=== PATIENT | female | born 1975 | race American Indian/Alaskan Native ===

== ENCOUNTER 2017-08-20 12:01 | Inpatient (IN) | payer MEDICAID ==
[2017-08-20 12:01] VITALS: BMI 29.5
[2017-08-20 12:58] LABS: BASO % 0.6 % (0.0-2.0); EOS # 0.2 K/uL (0.0-0.7); EOS % 3.1 % (0.0-4.0); HEMOGLOBIN 12.2 g/dL (11.0-16.0); LYMPH # 2.1 K/uL (1.0-4.3); LYMPH % 38.4 % (20.0-40.0); MEAN CELL VOLUME 80.8 fL (81.0-99.0); MEAN CORPUSCULAR HEMOGLOBIN 26.7 pg (27.0-31.0); MEAN CORPUSCULAR HGB CONC 33.1 g/dL (33.0-37.0); MEAN PLATELET VOLUME 9.2 fL (7.2-11.7); MONO # 0.5 K/uL (0.0-0.8); MONO % 8.9 % (0.0-10.0); NEUT # 2.6 K/uL (1.8-7.0); NRBC % 0.1 % (0.0-2.0); RBC 4.55 Mil/uL (3.80-5.20); RED CELL DISTRIBUTION WIDTH 13.6 % (11.5-14.5); WHITE BLOOD COUNT 5.4 K/uL (4.8-10.8)
[2017-08-20 13:02] LABS: HCG,QUALITATIVE URINE NEGATIVE (NEGATIVE)
[2017-08-20 13:03] LABS: SQUAMOUS EPITHIAL 1 /hpf (0-5); URINE BILIRUBIN NEGATIVE (NEGATIVE); URINE BLOOD NEGATIVE (NEGATIVE); URINE CLARITY Clear (Clear); URINE COLOR Yellow (YELLOW); URINE GLUCOSE (UA) NORMAL (Normal); URINE LEUKOCYTE ESTERASE NEG Leu/uL (Negative); URINE PROTEIN NEGATIVE (NEGATIVE); URINE UROBILINOGEN NORMAL mg/dL (0.2-1.0)
[2017-08-20 13:05] LABS: PROTHROMBIN TIME 11.4 SECONDS (9.7-12.2)
[2017-08-20 13:13] LABS: ALB/GLOB RATIO 1.1 (1.0-2.1); ALBUMIN 3.8 g/dL (3.5-5.0); ALT/SGPT 14 U/L (9-52); AST/SGOT 23 U/L (14-36); BLOOD UREA NITROGEN 11 mg/dL (7-17); GFR AFRICAN-AMERICAN > 60; GFR NON-AFRICAN AMERICAN > 60
[2017-08-20 13:24] LABS: B-TYPE NATRIURETIC PEPTIDE 23.4 pg/mL (0-450); CK-MB 1.27 ng/mL (0.0-3.38)
--- NOTE | 2017-08-20 13:29 | RAD ---
Chest x-ray single frontal view History: Chest pain. Comparison: None available. Findings: Mild venous congestion. No focal infiltrate or effusion. Heart size within normal limits. Impression: No focal infiltrate or effusion.
--- NOTE | 2017-08-20 15:03 | C.PDOC ---
Time Seen by Provider: 08/20/17 12:45 Chief Complaint (Nursing): Chest Pain Past Medical History Vital Signs: Last Vital Signs Temp 98.3 F 08/20/17 12:11 Pulse 82 08/20/17 12:11 Resp 18 08/20/17 12:11 BP 135/78 08/20/17 12:11 Pulse Ox 98 08/20/17 15:07 - Medical History PMH: Anemia, Gall Bladder Disease (gallstones), HTN, Hypercholesterolemia, Peripheral Edema Denies: Chronic Kidney Disease Surgical History: Cholecystectomy - [facility] Procedures LAPAROSCOPIC CHOLECYSTECTOMY (11/25/14) OTHER OPEN UMBILICAL HERNIORRHAPHY (11/25/14) - Social History Hx Alcohol Use: No Hx Substance Use: No ED Course And Treatment - Laboratory Results Result Diagrams: 08/20/17 12:47 08/20/17 12:47 O2 Sat by Pulse Oximetry: 98 Disposition - Disposition Disposition: HOSPITALIZED Disposition Time: 15:16 Condition: FAIR Forms: [facility] [employer] ([place]) - Clinical Impression Clinical Impression: Chest pain, Dyspnea
[2017-08-20] MEDS ORDERED: Albuterol 0.083% Inhal Sol (2.5 mg/3 mL) UD INH STA (15:07)
[2017-08-20] MEDS ORDERED: Albuterol 0.083% Inhal Sol (2.5 mg/3 mL) UD ONE (15:10)
--- NOTE | 2017-08-20 15:30 | C.PDOC ---
History Of Present Illness 42-year-old female, presents to the emergency department with complaints intermittent chest pain and shortness of breath for the past 2 days. Denies nausea/vomiting, fever, chills, or any other associated symptoms. No other complaints at this time. Time Seen by Provider: 08/20/17 12:45 Chief Complaint (Nursing): Chest Pain History Per: Patient History/Exam Limitations: no limitations Current Symptoms Are (Timing): Still Present Past Medical History Reviewed: Historical Data, Nursing Documentation, Vital Signs Vital Signs: Last Vital Signs Temp 98 F 08/20/17 16:02 Pulse 67 08/20/17 16:02 Resp 20 08/20/17 16:02 BP 158/84 H 08/20/17 16:02 Pulse Ox 98 08/20/17 18:18 - Medical History PMH: Anemia, Gall Bladder Disease (gallstones), HTN, Hypercholesterolemia, Peripheral Edema Surgical History: Cholecystectomy - [facility] Procedures LAPAROSCOPIC CHOLECYSTECTOMY (11/25/14) OTHER OPEN UMBILICAL HERNIORRHAPHY (11/25/14) Family History: States: No Known Family Hx - Social History Hx Alcohol Use: No Hx Substance Use: No Review Of Systems Except As Marked, All Systems Reviewed And Found Negative. Constitutional: Negative for: Fever, Chills Cardiovascular: Positive for: Chest Pain Respiratory: Positive for: Shortness of Breath Gastrointestinal: Negative for: Nausea, Vomiting Musculoskeletal: Negative for: Back Pain Skin: Negative for: Rash Neurological: Negative for: Weakness, Numbness, Headache, Dizziness Physical Exam - Physical Exam Appears: Non-toxic, No Acute Distress Skin: Normal Color, Warm, Dry, No Rash Head: Normacephalic Eye(s): bilateral: PERRL Nose: Normal Oral Mucosa: Moist Lips: Normal Appearing Neck: Normal ROM Chest: Symmetrical Cardiovascular: Rhythm Regular, No Murmur Respiratory: Normal Breath Sounds, No Accessory Muscle Use, No Rales, No Rhonchi , No Wheezing Gastrointestinal/Abdominal: Soft, No Tenderness Extremity: Normal ROM, Pedal Edema (Pitting, B/L), No Deformity, No Swelling Neurological/Psych: Oriented x3, Normal Speech ED Course And Treatment - Laboratory Results Result Diagrams: 08/20/17 12:47 08/20/17 12:47 ECG: Interpreted By Me, Viewed By Me ECG Interpretation: No Acute Changes Interpretation Of ECG: LVH Rate From EC O2 Sat by Pulse Oximetry: 98 (RA) Pulse Ox Interpretation: Normal - Other Rad CXR X-Ray: Viewed By Me, Read By Radiologist Interpretation: Chest x-ray single frontal view. History: Chest pain. Comparison: None available. Findings: Mild venous congestion. No focal infiltrate or effusion. Heart size within normal limits. Impression: No focal infiltrate or effusion. Progress Note: Bloodwork, Chest XR, EKG, and UA ordered and reviewed. Pt treated with Aspirin and Albuterol. Case was accepted by Medicine cardiology clinical consultant to telemetry for observation. Disposition - Disposition Disposition: HOSPITALIZED Disposition Time: 15:15 Condition: FAIR - Clinical Impression Clinical Impression: Chest pain, Dyspnea - Scribe Statement The provider has reviewed the documentation as recorded by the Scribe (Jaun Santos) All medical record entries made by the Scribe were at my direction and personally dictated by me. I have reviewed the chart and agree that the record accurately reflects my personal performance of the history, physical exam, medical decision making, and the department course for this patient. I have also personally directed, reviewed, and agree with the discharge instructions and disposition. Decision To Admit - Pt Status Changed To: Hospital Disposition Of: Observation - . Bed Request Type: Telemetry Admitting Physician: Sofya Caicedo Patient Diagnosis: Chest pain, Dyspnea
--- NOTE | 2017-08-20 15:54 | CP.PCM.HP ---
History of Present Illness - History of Present Illness History of Present Illness: PGY-[address] H&P [address] Leung's service: CC: SOB/Chest pain HPI: Patient is a 42 year old female, with PMHx of Anemia, Gall Bladder Disease ( gallstones), HTN, Hypercholesterolemia, Peripheral Edema, presenting for chest pain, SOB. Present on Admission - Present on Admission Any Indicators Present on Admission: No Past Patient History - Past Medical History & Family History Past Medical History?: Yes - Past Social History Smoking Status: Never Smoked - CARDIAC Hx Hypercholesterolemia: Yes Hx Hypertension: Yes Hx Peripheral Edema: Yes - PULMONARY Hx Respiratory Disorders: No - NEUROLOGICAL Hx Neurological Disorder: No - HEENT Hx HEENT Problems: No - RENAL Hx Chronic Kidney Disease: No - ENDOCRINE/METABOLIC Hx Endocrine Disorders: No - HEMATOLOGICAL/ONCOLOGICAL Hx Anemia: Yes - INTEGUMENTARY Hx Dermatological Problems: No - MUSCULOSKELETAL/RHEUMATOLOGICAL Hx Musculoskeletal Disorders: Yes Hx Herniated Disk: Yes (lumbar) - GASTROINTESTINAL Hx Gall Bladder Disease: Yes (gallstones) - GENITOURINARY/GYNECOLOGICAL Hx Genitourinary Disorders: Yes (CERVICAL DYSPLASIA) - PSYCHIATRIC Hx Substance Use: No - SURGICAL HISTORY Hx Cholecystectomy: Yes - ANESTHESIA Hx Anesthesia: Yes Hx Anesthesia Reactions: No Hx Malignant Hyperthermia: No Meds Allergies/Adverse Reactions: Allergies Allergy/AdvReac Type Severity Reaction Status Date / Time No Known Allergies Allergy Verified 11/21/14 12:55 Results - Vital Signs Recent Vital Signs: Last Vital Signs Temp 98.3 F 08/20/17 12:11 Pulse 66 08/20/17 15:34 Resp 13 08/20/17 15:34 BP 143/77 08/20/17 15:34 Pulse Ox 98 08/20/17 15:37 - Labs Result Diagrams: 08/20/17 12:47 08/20/17 12:47 Labs: Laboratory Results - last 24 hr 08/20/17 08/20/17 08/20/17 12:47 12:47 12:47 WBC 5.4 RBC 4.55 Hgb 12.2 Hct 36.7 MCV 80.8 L MCH 26.7 L MCHC 33.1 RDW 13.6 Plt Count 188 MPV 9.2 Neut % (Auto) 49.0 L Lymph % (Auto) 38.4 Crawford % (Auto) 8.9 Eos % (Auto) 3.1 Baso % (Auto) 0.6 Neut # (Auto) 2.6 Lymph # (Auto) 2.1 Crawford # (Auto) 0.5 Eos # (Auto) 0.2 Baso # (Auto) 0.0 PT 11.4 INR 1.0 APTT 33 Sodium Potassium Chloride Carbon Dioxide Anion Gap BUN Creatinine Est GFR ( Amer) Est GFR (Non-Af Amer) Random Glucose Calcium Total Bilirubin AST ALT Alkaline Phosphatase Total Creatine Kinase CK-MB (Mass) Troponin I NT-Pro-B Natriuret Pep Total Protein Albumin Globulin Albumin/Globulin Ratio Urine Color Yellow Urine Clarity Clear Urine pH 9.0 Ur Specific Gower 1.018 Urine Protein Negative Urine Glucose (UA) Normal Urine Ketones Negative Urine Blood Negative Urine Nitrate Negative Urine Bilirubin Negative Urine Urobilinogen Normal Ur Leukocyte Esterase Neg Urine WBC (Auto) 1 Urine RBC (Auto) 5 H Ur Squamous Epith Cells 1 Urine HCG, Qual Negative 08/20/17 12:47 WBC RBC Hgb Hct MCV MCH MCHC RDW Plt Count MPV Neut % (Auto) Lymph % (Auto) Crawford % (Auto) Eos % (Auto) Baso % (Auto) Neut # (Auto) Lymph # (Auto) Crawford # (Auto) Eos # (Auto) Baso # (Auto) PT INR APTT Sodium 143 Potassium 4.0 Chloride 102 Carbon Dioxide 30 Anion Gap 15 BUN 11 Creatinine 0.6 L Est GFR ( Amer) > 60 Est GFR (Non-Af Amer) > 60 Random Glucose 93 Calcium 9.0 Total Bilirubin 0.4 AST 23 ALT 14 Alkaline Phosphatase 60 Total Creatine Kinase 83 CK-MB (Mass) 1.27 Troponin I < 0.0120 NT-Pro-B Natriuret Pep 23.4 Total Protein 7.5 Albumin 3.8 Globulin 3.6 Albumin/Globulin Ratio 1.1 Urine Color Urine Clarity Urine pH Ur Specific Gower Urine Protein Urine Glucose (UA) Urine Ketones Urine Blood Urine Nitrate Urine Bilirubin Urine Urobilinogen Ur Leukocyte Esterase Urine WBC (Auto) Urine RBC (Auto) Ur Squamous Epith Cells Urine HCG, Qual Assessment & Plan - Assessment and Plan (Free Text) Plan: Chest pain - r/o ACS Admit to EKG (08/20/17): NSR @ 68, LVH, No acute ST/ T wave changes CXR (08/20/17): No infiltrate or effusion. BNP: 23.4 Troponin negative x 1, f/u 2 additional ASA 325mg given in ED Hx Anemia HTN Hypercholesterolemia
[2017-08-20] MEDS ORDERED: Albuterol HFA 90 mcg/actuation (8 g) INH PRN (20:00)
[2017-08-21 00:56] VITALS: RESP 20
[2017-08-21 07:54] LABS: MEAN CELL VOLUME 80.8 fL (81.0-99.0); MEAN CORPUSCULAR HEMOGLOBIN 26.9 pg (27.0-31.0); MEAN CORPUSCULAR HGB CONC 33.3 g/dL (33.0-37.0); MEAN PLATELET VOLUME 9.3 fL (7.2-11.7); RBC 4.48 Mil/uL (3.80-5.20); RED CELL DISTRIBUTION WIDTH 13.9 % (11.5-14.5); WHITE BLOOD COUNT 4.2 K/uL (4.8-10.8)
[2017-08-21 08:16] LABS: BLOOD UREA NITROGEN 11 mg/dL (7-17); GFR AFRICAN-AMERICAN > 60; GFR NON-AFRICAN AMERICAN > 60
[2017-08-21] MEDS: Pantoprazole 40 mg EC Tab PO SCH (09:11)
[2017-08-21] MEDS ORDERED: Enoxaparin 40 mg Syringe SC SCH (10:00)
--- NOTE | 2017-08-21 15:28 | CP.PCM.CON ---
History of Present Illness - History of Present Illness History of Present Illness: Consultation for evaluation of Cp/SOB: 42-year-old female presenting with complaints of chest pain and shortness of breath ongoing for 2 days prior to presentation. Chest x-ray was in the ER showed mild venous congestion initial troponin was negative patient was admitted to observation for further evaluation and treatment. She was resumed on aspirin hydrochlorothiazide Claritin along with albuterol and Protonix. Vitals on initial presentation was 120/78 with a pulse of 58 patient's blood pressure in the hospital has been mildly elevated. Review of Systems - Review of Systems Systems not reviewed;Unavailable: Acuity of Condition - Constitutional Constitutional: As Per HPI - EENT Eyes: As Per HPI Ears: As Per HPI Nose/Mouth/Throat: As Per HPI - Breasts Breasts: As Per HPI - Cardiovascular Cardiovascular: As Per HPI - Respiratory Respiratory: As Per HPI - Gastrointestinal Gastrointestinal: As Per HPI - Genitourinary Genitourinary: As Per HPI - Reproductive: Female Reproductive:Female: As Per HPI - Menstruation Menstruation: As Per HPI - Musculoskeletal Musculoskeletal: As Per HPI - Integumentary Integumentary: As Per HPI - Neurological Neurological: As Per HPI - Psychiatric Psychiatric: As Per HPI - Endocrine Endocrine: As Per HPI - Hematologic/Lymphatic Hematologic: As Per HPI Past Patient History - Past Medical History & Family History Past Medical History?: Yes - Past Social History Smoking Status: Never Smoked - CARDIAC Hx Hypercholesterolemia: Yes Hx Hypertension: Yes Hx Peripheral Edema: Yes - PULMONARY Hx Respiratory Disorders: No - NEUROLOGICAL Hx Neurological Disorder: No - HEENT Hx HEENT Problems: No - RENAL Hx Chronic Kidney Disease: No - ENDOCRINE/METABOLIC Hx Endocrine Disorders: No - HEMATOLOGICAL/ONCOLOGICAL Hx Anemia: Yes - INTEGUMENTARY Hx Dermatological Problems: No - MUSCULOSKELETAL/RHEUMATOLOGICAL Hx Musculoskeletal Disorders: Yes Hx Herniated Disk: Yes (lumbar) - GASTROINTESTINAL Hx Gall Bladder Disease: Yes (gallstones) - GENITOURINARY/GYNECOLOGICAL Hx Genitourinary Disorders: Yes (CERVICAL DYSPLASIA) - PSYCHIATRIC Hx Substance Use: No - SURGICAL HISTORY Hx Cholecystectomy: Yes - ANESTHESIA Hx Anesthesia: Yes Hx Anesthesia Reactions: No Hx Malignant Hyperthermia: No Meds Allergies/Adverse Reactions: Allergies Allergy/AdvReac Type Severity Reaction Status Date / Time No Known Allergies Allergy Verified 11/21/14 12:55 - Medications Medications: Current Medications Albuterol (Ventolin Hfa 90 Mcg/Actuation (8 G)) 1 puff INH RQ4 PRN PRN Reason: Shortness of Breath Aspirin (Aspirin) 325 mg PO DAILY [facility] Last Admin: 08/21/17 09:08 Dose: 325 mg Hydrochlorothiazide (Hydrodiuril) 25 mg PO DAILY [facility] Last Admin: 08/21/17 09:08 Dose: 25 mg Loratadine (Claritin) 10 mg PO DAILY [facility] Last Admin: 08/21/17 09:08 Dose: 10 mg Pantoprazole Sodium (Protonix Ec Tab) 40 mg PO DAILY [facility] Last Admin: 08/21/17 09:11 Dose: 40 mg Physical Exam - Constitutional Appears: Well - Head Exam Head Exam: ATRAUMATIC, NORMAL INSPECTION, NORMOCEPHALIC - Eye Exam Eye Exam: EOMI, Normal appearance, PERRL Pupil Exam: NORMAL ACCOMODATION, PERRL - ENT Exam ENT Exam: Mucous Membranes Moist, Normal Exam - Neck Exam Neck exam: Positive for: Normal Inspection - Respiratory Exam Respiratory Exam: Clear to Auscultation Bilateral, NORMAL BREATHING PATTERN - Cardiovascular Exam Cardiovascular Exam: REGULAR RHYTHM, Systolic Murmur - GI/Abdominal Exam GI & Abdominal Exam: Normal Bowel Sounds, Soft. absent: Tenderness - Extremities Exam Extremities exam: Positive for: normal inspection - Back Exam Back exam: NORMAL INSPECTION - Neurological Exam Neurological exam: Alert, CN II-XII Intact, Normal Gait, Oriented x3, Reflexes Normal - Psychiatric Exam Psychiatric exam: Normal Affect, Normal Mood - Skin Skin Exam: Dry, Intact, Normal Color, Warm Results - Vital Signs Recent Vital Signs: Last Vital Signs Temp 98.2 F 08/21/17 07:15 Pulse 70 08/21/17 07:40 Resp 20 08/21/17 07:15 BP 126/82 08/21/17 07:15 Pulse Ox 100 08/21/17 07:15 - Labs Result Diagrams: 08/21/17 07:43 08/21/17 07:43 Labs: Laboratory Results - last 24 hr 08/21/17 08/21/17 07:43 07:43 WBC 4.2 L RBC 4.48 Hgb 12.0 Hct 36.2 MCV 80.8 L MCH 26.9 L MCHC 33.3 RDW 13.9 Plt Count 173 MPV 9.3 Sodium 142 Potassium 4.0 Chloride 103 Carbon Dioxide 27 Anion Gap 15 BUN 11 Creatinine 0.6 L Est GFR ( Amer) > 60 Est GFR (Non-Af Amer) > 60 Random Glucose 85 Calcium 9.0 TSH 3rd Generation 1.05 Assessment & Plan (1) Chest pain Assessment and Plan: telemetry asa echo Serial TnI x 3 BNP Status: Acute (2) Dyspnea Assessment and Plan: echo Status: Acute
--- NOTE | 2017-08-21 16:24 | CP.PCM.CON ---
History of Present Illness - History of Present Illness History of Present Illness: Reason for consultation: shortness of breath 2-year-old female, presents to the emergency department with complaints intermittent chest pain and shortness of breath for the past 2 days. Denies nausea/vomiting, fever, chills, or any other associated symptoms. No other complaints at this time. Chest x-ray consistent with mild congestio. Denies cough, denies fever chills, denies wheezing. Patient has no history of smoking or any allergies. Review of Systems - Review of Systems All systems: reviewed and no additional remarkable complaints except (shortness of breath and chest pain) Past Patient History - Past Medical History & Family History Past Medical History?: Yes - Past Social History Smoking Status: Never Smoked - CARDIAC Hx Hypercholesterolemia: Yes Hx Hypertension: Yes Hx Peripheral Edema: Yes - PULMONARY Hx Respiratory Disorders: No - NEUROLOGICAL Hx Neurological Disorder: No - HEENT Hx HEENT Problems: No - RENAL Hx Chronic Kidney Disease: No - ENDOCRINE/METABOLIC Hx Endocrine Disorders: No - HEMATOLOGICAL/ONCOLOGICAL Hx Anemia: Yes - INTEGUMENTARY Hx Dermatological Problems: No - MUSCULOSKELETAL/RHEUMATOLOGICAL Hx Musculoskeletal Disorders: Yes Hx Herniated Disk: Yes (lumbar) - GASTROINTESTINAL Hx Gall Bladder Disease: Yes (gallstones) - GENITOURINARY/GYNECOLOGICAL Hx Genitourinary Disorders: Yes (CERVICAL DYSPLASIA) - PSYCHIATRIC Hx Substance Use: No - SURGICAL HISTORY Hx Cholecystectomy: Yes - ANESTHESIA Hx Anesthesia: Yes Hx Anesthesia Reactions: No Hx Malignant Hyperthermia: No Meds Allergies/Adverse Reactions: Allergies Allergy/AdvReac Type Severity Reaction Status Date / Time No Known Allergies Allergy Verified 11/21/14 12:55 - Medications Medications: Current Medications Albuterol (Ventolin Hfa 90 Mcg/Actuation (8 G)) 1 puff INH RQ4 PRN PRN Reason: Shortness of Breath Aspirin (Aspirin) 325 mg PO DAILY [facility] Last Admin: 08/21/17 09:08 Dose: 325 mg Hydrochlorothiazide (Hydrodiuril) 25 mg PO DAILY [facility] Last Admin: 08/21/17 09:08 Dose: 25 mg Loratadine (Claritin) 10 mg PO DAILY [facility] Last Admin: 08/21/17 09:08 Dose: 10 mg Pantoprazole Sodium (Protonix Ec Tab) 40 mg PO DAILY [facility] Last Admin: 08/21/17 09:11 Dose: 40 mg Physical Exam - Head Exam Head Exam: ATRAUMATIC, NORMOCEPHALIC - ENT Exam ENT Exam: Mucous Membranes Moist - Neck Exam Neck exam: Positive for: Normal Inspection - Respiratory Exam Respiratory Exam: Clear to Auscultation Bilateral - Cardiovascular Exam Cardiovascular Exam: REGULAR RHYTHM Results - Vital Signs Recent Vital Signs: Last Vital Signs Temp 98.0 F 08/21/17 15:00 Pulse 72 08/21/17 15:00 Resp 20 08/21/17 15:00 BP 127/79 08/21/17 15:00 Pulse Ox 98 08/21/17 15:00 - Labs Result Diagrams: 08/21/17 07:43 08/21/17 07:43 Labs: Laboratory Results - last 24 hr 08/21/17 08/21/17 07:43 07:43 WBC 4.2 L RBC 4.48 Hgb 12.0 Hct 36.2 MCV 80.8 L MCH 26.9 L MCHC 33.3 RDW 13.9 Plt Count 173 MPV 9.3 Sodium 142 Potassium 4.0 Chloride 103 Carbon Dioxide 27 Anion Gap 15 BUN 11 Creatinine 0.6 L Est GFR ( Amer) > 60 Est GFR (Non-Af Amer) > 60 Random Glucose 85 Calcium 9.0 TSH 3rd Generation 1.05 Assessment & Plan (1) Dyspnea Status: Acute Comment: congestive changes and chest x-ray. Echocardiogram. Seen by cardiology. Started on nebulizer treatment (2) Chest pain Status: Acute
[2017-08-21 19:43] LABS: HDL CHOLESTEROL 47 mg/dL (30-70)
[2017-08-21 19:54] LABS: CK-MB 0.69 ng/mL (0.0-3.38)
[2017-08-21 19:56] LABS: LDL CHOLESTEROL 116 mg/dL (0-129)
[2017-08-21 20:52] LABS: FOLATE 12.6 ng/mL
[2017-08-22 07:59] LABS: IRON 71 ug/dL (37-170)
[2017-08-22 08:09] LABS: % IRON SATURATION 18 (20-55); TOTAL IRON BINDING CAPACITY 387 ug/dL (250-450)
--- NOTE | 2017-08-22 08:52 | CP.PCM.PN ---
<Abhi Chamberlain - Last Filed: 08/22/17 09:16> Subjective - Date & Time of Evaluation Date of Evaluation: 08/22/17 Time of Evaluation: 09:11 - Subjective Subjective: Abhi Chamberlain PGY1 Cardiology Progress Note for Dr. Miranda Patient was seen and examined at bedside. Patient had cholecystectomy in 2015 and states that she has had midsternal/back pain since then, that is sharp and nagging at times, but dull for a few hours a day. she states that it is exacerbated when bending down and radiates to her feet at times. she also states that she has seasonal allergies that worsen her breathing as well as PMH of HTN, HLD, anemia 2/2 menorrhagia; she states that she follows up at a clinic but is non-compliant with her medications. She also states that she has family hx of breast and stomach cancer as well as a brother who at 42yo due to diabetes/stress, according to her. she is from [facility] and has migrated from there since 2005 and has not traveled recently. she has 6 children in total. she states that she feels "knives stabbing her chest" for 30mins and then dull pain for a few hours a day (which she states she is experiencing at the time of exam. she denies worsening with exertion, radiation to neck/arms and relief w/ rest. Objective - Vital Signs/Intake and Output Vital Signs (last 24 hours): Temp Pulse Resp BP Pulse Ox 98.1 F 64 20 123/81 99 08/22/17 07:50 08/22/17 07:50 08/22/17 07:50 08/22/17 07:50 08/22/17 07:50 - Medications Medications: Current Medications Albuterol (Ventolin Hfa 90 Mcg/Actuation (8 G)) 1 puff INH RQ4 PRN PRN Reason: Shortness of Breath Aspirin (Aspirin) 325 mg PO DAILY [facility] Last Admin: 08/21/17 09:08 Dose: 325 mg Hydrochlorothiazide (Hydrodiuril) 25 mg PO DAILY [facility] Last Admin: 08/21/17 09:08 Dose: 25 mg Loratadine (Claritin) 10 mg PO DAILY [facility] Last Admin: 08/21/17 09:08 Dose: 10 mg Pantoprazole Sodium (Protonix Ec Tab) 40 mg PO DAILY [facility] Last Admin: 08/21/17 09:11 Dose: 40 mg - Labs Labs: 08/21/17 07:43 08/21/17 07:43 PT 11.4 SECONDS (9.7-12.2) 08/20/17 12:47 INR 1.0 08/20/17 12:47 APTT 33 SECONDS (21-34) 08/20/17 12:47 - Constitutional Appears: Well, Non-toxic, No Acute Distress - Head Exam Head Exam: NORMAL INSPECTION - Eye Exam Eye Exam: Normal appearance Pupil Exam: NORMAL ACCOMODATION - ENT Exam ENT Exam: Mucous Membranes Moist, Normal Exam - Neck Exam Neck Exam: Normal Inspection - Respiratory Exam Respiratory Exam: Clear to Ausculation Bilateral, NORMAL BREATHING PATTERN. absent: Rales, Rhonchi, Wheezes - Cardiovascular Exam Cardiovascular Exam: RRR, +S1, +S2. absent: Murmur - GI/Abdominal Exam GI & Abdominal Exam: Soft, Tenderness (epigastric tenderness ), Normal Bowel Sounds. absent: Distended - Extremities Exam Extremities Exam: Full ROM, Pedal Edema (1+ b/l; wearing pressure stocking) - Back Exam Back Exam: NORMAL INSPECTION. absent: tenderness - Neurological Exam Neurological Exam: Alert, Awake, Oriented x3 - Psychiatric Exam Psychiatric exam: Normal Affect - Skin Skin Exam: Warm Assessment and Plan - Assessment and Plan (Free Text) Assessment: 42yo AAF with a PMH of HTN, HLD, anemia w/ blood transfusions, s/p cholecystectomy who presents with atypical chest pain symptoms ongoing for 2 years worsened the last 2 days. Plan: 1. Atypical chest pain - patient admitted to telemetry unit for monitoring - CXR showed mild vascular congestion - cont ASA - cont albuterol prn - Echo ordered - EKG showed NSR @ 68bpm, with possible LAE 2. Hx HTN - cont HCTZ 3. PPx - PTX Patient was reviewed and discussed with Dr. Miranda <Jonnie Miranda - Last Filed: 08/22/17 18:41> Objective - Vital Signs/Intake and Output Vital Signs (last 24 hours): Temp Pulse Resp BP Pulse Ox 97.9 F 68 20 121/78 99 08/22/17 16:00 08/22/17 16:00 08/22/17 16:00 08/22/17 16:00 08/22/17 16:00 - Medications Medications: Current Medications Albuterol (Ventolin Hfa 90 Mcg/Actuation (8 G)) 1 puff INH RQ4 PRN PRN Reason: Shortness of Breath Aspirin (Aspirin) 325 mg PO DAILY [facility] Last Admin: 08/22/17 09:40 Dose: 325 mg Enoxaparin Sodium (Lovenox) 40 mg SC DAILY [facility] Hydrochlorothiazide (Hydrodiuril) 25 mg PO DAILY [facility] Last Admin: 08/22/17 09:40 Dose: 25 mg Loratadine (Claritin) 10 mg PO DAILY [facility] Last Admin: 08/22/17 09:40 Dose: 10 mg Pantoprazole Sodium (Protonix Ec Tab) 40 mg PO ACB [facility] Polyethylene Glycol (Miralax) 17 gm PO DAILY [facility] Last Admin: 08/22/17 10:57 Dose: 17 gm Rosuvastatin Calcium (Crestor) 10 mg PO HS [facility] - Labs Labs: 08/21/17 07:43 08/21/17 07:43 PT 11.4 SECONDS (9.7-12.2) 08/20/17 12:47 INR 1.0 08/20/17 12:47 APTT 33 SECONDS (21-34) 08/20/17 12:47 Assessment and Plan (1) Chest pain Status: Acute (2) Dyspnea Status: Acute Attending/Attestation - Attestation I have personally seen and examined this patient.: Yes I have fully participated in the care of the patient.: Yes I have reviewed all pertinent clinical information, including history, physical exam and plan: Yes Notes (Text): 08/22/17 18:40 atypical CP etiology most likely respiratory stable to dc home outpt w/u
--- NOTE | 2017-08-22 09:27 | CP.PCM.CON ---
<Teri Smith - Last Filed: 08/22/17 13:39> History of Present Illness - History of Present Illness History of Present Illness: Gastroenterology Fellow/PGY5 Consult Note 42 year old female with PMH of HTN and HLD presenting with chest pain and shortness of breath. Patient describes one month of dry cough and sneezing that she associates with seasonal allergies leading to chest tightness and shortness of breath at rest that is progressively worsening leading to ER presentation. Associated bilateral leg swelling. Denies chest pain with exertion, diaphoresis , orthopnea, or paroxysmal nocturnal dyspnea. GI consultation for GERD. patient notes "issues with her stomach" since cholecystectomy 11/2014. She describes stabbing, gnawing epigastric sensation associated with heartburn, acid reflux, excess salivation at night, bloating, burping, nausea, and new onset loss of appetite for the last month. Notes about a two pound weight loss. Denies odynophagia, dysphagia, vomiting, hematemesis, diarrhea, melena, hematochezia. States she avoids acidic, fatty, and sugary foods. Prior EGD endorsed 11/2014 to show H pylori gastritis s/p treatment and eradication per patient. No prior colonoscopy. Family History- nephew-stomach cancer, multiple family members with cervical canceer and breast cancer; denies colon cancer or pancreatic cancer Social History- denies tobacco, alcohol, illicit drug use Surgical History- cholecystectomy with umbilical hernia repair 11/2014, , breast biopsies at [place] Review of Systems - Review of Systems Review of Systems: 12-point review of systems negative except for as above Past Patient History - Past Medical History & Family History Past Medical History?: Yes - Past Social History Smoking Status: Never Smoked - CARDIAC Hx Hypercholesterolemia: Yes Hx Hypertension: Yes Hx Peripheral Edema: Yes - PULMONARY Hx Respiratory Disorders: No - NEUROLOGICAL Hx Neurological Disorder: No - HEENT Hx HEENT Problems: No - RENAL Hx Chronic Kidney Disease: No - ENDOCRINE/METABOLIC Hx Endocrine Disorders: No - HEMATOLOGICAL/ONCOLOGICAL Hx Anemia: Yes - INTEGUMENTARY Hx Dermatological Problems: No - MUSCULOSKELETAL/RHEUMATOLOGICAL Hx Musculoskeletal Disorders: Yes Hx Herniated Disk: Yes (lumbar) - GASTROINTESTINAL Hx Gall Bladder Disease: Yes (gallstones) - GENITOURINARY/GYNECOLOGICAL Hx Genitourinary Disorders: Yes (CERVICAL DYSPLASIA) - PSYCHIATRIC Hx Substance Use: No - SURGICAL HISTORY Hx Cholecystectomy: Yes - ANESTHESIA Hx Anesthesia: Yes Hx Anesthesia Reactions: No Hx Malignant Hyperthermia: No Meds Allergies/Adverse Reactions: Allergies Allergy/AdvReac Type Severity Reaction Status Date / Time No Known Allergies Allergy Verified 11/21/14 12:55 - Medications Medications: Current Medications Albuterol (Ventolin Hfa 90 Mcg/Actuation (8 G)) 1 puff INH RQ4 PRN PRN Reason: Shortness of Breath Aspirin (Aspirin) 325 mg PO DAILY [facility] Last Admin: 08/21/17 09:08 Dose: 325 mg Hydrochlorothiazide (Hydrodiuril) 25 mg PO DAILY [facility] Last Admin: 08/21/17 09:08 Dose: 25 mg Loratadine (Claritin) 10 mg PO DAILY [facility] Last Admin: 08/21/17 09:08 Dose: 10 mg Pantoprazole Sodium (Protonix Ec Tab) 40 mg PO DAILY [facility] Last Admin: 08/21/17 09:11 Dose: 40 mg Physical Exam - Constitutional Appears: Non-toxic, No Acute Distress - Head Exam Head Exam: ATRAUMATIC, NORMOCEPHALIC - Eye Exam Eye Exam: EOMI, PERRL. absent: Scleral icterus Pupil Exam: PERRL. absent: Miosis, Mydriatic - ENT Exam ENT Exam: Mucous Membranes Moist, Normal Oropharynx - Neck Exam Neck exam: Positive for: Full Rom, Normal Inspection - Respiratory Exam Respiratory Exam: Clear to Auscultation Bilateral. absent: Accessory Muscle Use , Chest Wall Tenderness, Decreased Breath Sounds, Prolonged Expiratory Phase, Rales, Rhonchi, Wheezes - Cardiovascular Exam Cardiovascular Exam: RRR, +S1, +S2. absent: Gallop, JVD, Rubs - GI/Abdominal Exam GI & Abdominal Exam: Normal Bowel Sounds, Soft, Tenderness. absent: Distended, Firm, Guarding, Organomegaly, Rebound, Rigid Additional comments: epigastric tenderness - Extremities Exam Extremities exam: Negative for: calf tenderness Additional comments: B/L LE edema 1+ - Neurological Exam Neurological exam: Alert, Oriented x3 - Psychiatric Exam Psychiatric exam: Normal Affect, Normal Mood - Skin Skin Exam: Dry, Intact, Normal Color, Warm Results - Vital Signs Recent Vital Signs: Last Vital Signs Temp 98.1 F 08/22/17 07:50 Pulse 64 08/22/17 07:50 Resp 20 08/22/17 07:50 BP 123/81 05/21/18 07:50 Pulse Ox 99 08/22/17 07:50 - Labs Result Diagrams: 08/21/17 07:43 08/21/17 07:43 Labs: Laboratory Results - last 24 hr 08/21/17 08/22/17 19:31 07:27 Iron 71 TIBC 387 % Saturation 18 L Total Creatine Kinase 70 CK-MB (Mass) 0.69 Troponin I < 0.0120 Triglycerides 184 H Cholesterol 210 H LDL Cholesterol Direct 116 HDL Cholesterol 47 Vitamin B12 555 Folate 12.6 Assessment & Plan - Assessment and Plan (Free Text) Assessment: 42 year old female with PMH of HTN and HLD presenting with chest pain and shortness of breath. GI consultation for GERD. Prior EGD endorsed 11/2014 to show H pylori gastritis s/p treatment and eradication per patient. No prior colonoscopy. Plan: -dyspepsia likely 2/2 GERD -start Protonix trial -counselled to take PPI 30 minutes before breakfast -history of H pylori endorsed 11/2014 -ordered stool H pylori antigen -counselled on lifestyle modifications- diet, exercise -start Miralax for constipation -cardiology and pulmonology managing chest pain and shortness of breath workup -pending ECHO -follow up with established heavy threader, Dr. Roger for possible EGD if symptoms persist <Lauryn Diehl - Last Filed: 08/22/17 14:15> Meds - Medications Medications: Current Medications Albuterol (Ventolin Hfa 90 Mcg/Actuation (8 G)) 1 puff INH RQ4 PRN PRN Reason: Shortness of Breath Aspirin (Aspirin) 325 mg PO DAILY [facility] Last Admin: 08/22/17 09:40 Dose: 325 mg Enoxaparin Sodium (Lovenox) 40 mg SC DAILY [facility] Hydrochlorothiazide (Hydrodiuril) 25 mg PO DAILY [facility] Last Admin: 08/22/17 09:40 Dose: 25 mg Loratadine (Claritin) 10 mg PO DAILY [facility] Last Admin: 08/22/17 09:40 Dose: 10 mg Pantoprazole Sodium (Protonix Ec Tab) 40 mg PO ACB [facility] Polyethylene Glycol (Miralax) 17 gm PO DAILY [facility] Last Admin: 08/22/17 10:57 Dose: 17 gm Rosuvastatin Calcium (Crestor) 10 mg PO HS [facility] Results - Vital Signs Recent Vital Signs: Last Vital Signs Temp 98.1 F 08/22/17 07:50 Pulse 64 08/22/17 07:50 Resp 20 08/22/17 07:50 BP 123/81 08/22/17 07:50 Pulse Ox 99 08/22/17 07:50 - Labs Result Diagrams: 08/21/17 07:43 08/21/17 07:43 Labs: Laboratory Results - last 24 hr 08/21/17 08/21/17 08/22/17 19:31 19:31 07:27 Hemoglobin A1c 6.0 Iron 71 TIBC 387 % Saturation 18 L Total Creatine Kinase 70 CK-MB (Mass) 0.69 Troponin I < 0.0120 Triglycerides 184 H Cholesterol 210 H LDL Cholesterol Direct 116 HDL Cholesterol 47 Vitamin B12 555 Folate 12.6 Attending/Attestation - Attestation I have personally seen and examined this patient.: Yes I have fully participated in the care of the patient.: Yes I have reviewed all pertinent clinical information: Yes Notes (Text): 08/22/17 14:13 This is a 42 year old female with PMH of HTN and HLD presenting with chest pain and shortness of breath. GI consultation for GERD. Prior EGD endorsed 11/2014 to show H pylori gastritis s/p treatment and eradication per patient. Likely dyspepsia. Will do PPI trail and can follow with her GI as outpatient. Cardiology and pulmonology managing chest pain and shortness of breath workup. Thank you for letting us participate in the care of your patient
[2017-08-22] MEDS: Pantoprazole 40 mg EC Tab PO SCH (09:40)
[2017-08-22] MEDS: POLYETHYLENE GLYCOL 3350 17 GM/Dose PACKET PO SCH (10:57)
--- NOTE | 2017-08-22 16:09 | CP.PCM.PN ---
Subjective - Date & Time of Evaluation Date of Evaluation: 08/22/17 Time of Evaluation: 16:09 Objective - Vital Signs/Intake and Output Vital Signs (last 24 hours): Temp Pulse Resp BP Pulse Ox 98.1 F 64 20 123/81 99 08/22/17 07:50 08/22/17 07:50 08/22/17 07:50 08/22/17 07:50 08/22/17 07:50 - Medications Medications: Current Medications Albuterol (Ventolin Hfa 90 Mcg/Actuation (8 G)) 1 puff INH RQ4 PRN PRN Reason: Shortness of Breath Aspirin (Aspirin) 325 mg PO DAILY [facility] Last Admin: 08/22/17 09:40 Dose: 325 mg Enoxaparin Sodium (Lovenox) 40 mg SC DAILY [facility] Hydrochlorothiazide (Hydrodiuril) 25 mg PO DAILY [facility] Last Admin: 08/22/17 09:40 Dose: 25 mg Loratadine (Claritin) 10 mg PO DAILY [facility] Last Admin: 08/22/17 09:40 Dose: 10 mg Pantoprazole Sodium (Protonix Ec Tab) 40 mg PO ACB [facility] Polyethylene Glycol (Miralax) 17 gm PO DAILY [facility] Last Admin: 08/22/17 10:57 Dose: 17 gm Rosuvastatin Calcium (Crestor) 10 mg PO HS [facility] - Labs Labs: 08/21/17 07:43 08/21/17 07:43 PT 11.4 SECONDS (9.7-12.2) 08/20/17 12:47 INR 1.0 08/20/17 12:47 APTT 33 SECONDS (21-34) 08/20/17 12:47 Assessment and Plan - Assessment and Plan (Free Text) Assessment: FOLLOW UP WITH DR DOSHI AT HER OFFICE IN 1-2 WEEK ---CALL FOR APPOINTMENT FOLLOW UP WITH DR ALVARENGA AT HIS OFFICE IN 1 WEEK --CALL FOR APPOINTMENT CONTINUE ALL YOUR HOME MEDICATION NEW PRESCRIPTIO GIVEN CRESTOR 10 MG BY MOUTH ONE TAB AT NIGHT ACTIVITY TOLERATED CALL DR DOSHI OR GO TO THE EMERGENCY ROOM IF SYMPTOMS RETURN OR WORSENING
[2017-08-22] MEDS ORDERED: Iodixanol 320 MG/ML 100 ML BOTTLE IV ONE (17:28)
--- NOTE | 2017-08-22 18:28 | HP ---
The patient is a 42-year-old female. CHIEF COMPLAINT: The patient was seen and examined at the bedside on 08/21/2017 with chief complaint of chest pain, shortness of breath. HISTORY OF PRESENT ILLNESS: Ms. Alia De La Paz is a 42-year-old female who came to the emergency room complaining of intermittent chest pain and shortness of breath for the past few days. Denies nausea, vomiting, fevers, chills, or any other associated symptoms. No headache. No hematuria or hematochezia. Has chest pain and shortness of breath. PAST MEDICAL HISTORY: Anemia and gallbladder disease, gallstone, status post cholecystectomy, hypertension, hypercholesterolemia. FAMILY HISTORY: Noncontributory. HABITS: No smoking, no drugs, no ethanol. REVIEW OF SYSTEMS: The patient was seen and examined at the bedside. Daughter was sitting at the bedside also at that moment. No shortness of breath, no chest pain. No nausea, vomiting, or diarrhea. No hematuria. No hematochezia. No headache, no dizziness. PHYSICAL EXAMINATION: VITAL SIGNS: Temperature 98, pulse 67, respiratory rate 20, blood pressure 150/60, pulse oximetry 98%. HEENT: Head: Normocephalic, atraumatic. Eyes: PERRLA. Extraocular movements intact. Conjunctivae clear. Nose patent. Mucous membranes are moist. NECK: Supple. No carotid bruits, JVD, or thyromegaly. CHEST: Bilaterally symmetrical. HEART: S1, S2 positive. LUNGS: Clear to auscultation. ABDOMEN: Soft. Bowel sounds present. No organomegaly. EXTREMITIES: Trace edema. NEUROLOGIC: The patient is awake, alert. Moving all four extremities. No focal deficits. LABORATORY DATA: White blood cells 5.4, hemoglobin 12.2, hematocrit 32.7, platelets 188. Sodium 143, potassium 4, BUN 11, creatinine 0.6, glucose 93. ASSESSMENT AND PLAN: Ms. Alia De La Paz is a 42-year-old lady came with chest pain, shortness of breath, gastroesophageal reflux disease, dyspepsia, history of hypertension, hypercholesterolemia, history of leukopenia, status post blood transfusion, status post cholecystectomy. According to nuisance wildlife control operator, she has had atypical chest pain with symptoms going on for 2 years, worsened the last few days. The patient admitted to telemetry for monitoring. Chest x-ray shows mild vascular congestion. Continue aspirin, albuterol. Echocardiogram ordered. Hypertension, continue hydrochlorothiazide. Gastrointestinal and deep vein thrombosis prophylaxis as per nuisance wildlife control operator. Seen by Pulmonology, Rah Brown for shortness of breath. Rule out congestive heart failure. Dyspnea, started on nebulizer treatment by Dr. Brown. Waiting for Gastroenterology input. Gastrointestinal and deep venous thrombosis prophylaxis. Repeat laboratories. We will follow up. Sofya Caicedo MD
[2017-08-23] MEDS ORDERED: Pantoprazole 40 mg EC Tab PO SCH (07:30)
[2017-08-23 07:43] VITALS: BP 148/88; PULSE 63; TEMP 97.7; O2SAT 98
[2017-08-23] MEDS: POLYETHYLENE GLYCOL 3350 17 GM/Dose PACKET PO SCH (09:08)
--- NOTE | 2017-08-23 09:20 | CP.PCM.PN ---
Subjective - Date & Time of Evaluation Date of Evaluation: 08/23/17 Time of Evaluation: 09:20 - Subjective Subjective: Abhi Chamberlain PGY1 Cardiology Progress Note for Dr. Miranda Patient was seen and examined at bedside. she denies overnight events. The patient states that her symptoms have resolved, and currently denies chest pain , shortness of breath, leg swelling or other complaints. Objective - Vital Signs/Intake and Output Vital Signs (last 24 hours): Temp Pulse Resp BP Pulse Ox 97.7 F 63 20 148/88 98 08/23/17 07:35 08/23/17 07:35 08/23/17 07:35 08/23/17 07:35 08/23/17 07:35 - Medications Medications: Current Medications Albuterol (Ventolin Hfa 90 Mcg/Actuation (8 G)) 1 puff INH RQ4 PRN PRN Reason: Shortness of Breath Aspirin (Aspirin) 325 mg PO DAILY [facility] Last Admin: 08/23/17 09:07 Dose: 325 mg Enoxaparin Sodium (Lovenox) 40 mg SC DAILY [facility] Last Admin: 08/23/17 09:07 Dose: 40 mg Hydrochlorothiazide (Hydrodiuril) 25 mg PO DAILY [facility] Last Admin: 08/23/17 09:07 Dose: 25 mg Loratadine (Claritin) 10 mg PO DAILY [facility] Last Admin: 08/23/17 09:07 Dose: 10 mg Pantoprazole Sodium (Protonix Ec Tab) 40 mg PO ACB [facility] Last Admin: 08/23/17 06:35 Dose: 40 mg Polyethylene Glycol (Miralax) 17 gm PO DAILY [facility] Last Admin: 08/23/17 09:08 Dose: 17 gm Rosuvastatin Calcium (Crestor) 10 mg PO HS [facility] Last Admin: 08/22/17 21:16 Dose: 10 mg - Labs Labs: 08/21/17 07:43 08/21/17 07:43 PT 11.4 SECONDS (9.7-12.2) 08/20/17 12:47 INR 1.0 08/20/17 12:47 APTT 33 SECONDS (21-34) 08/20/17 12:47 - Additional Findings Additional findings: - Constitutional Appears: Well, Non-toxic, No Acute Distress - Head Exam Head Exam: NORMAL INSPECTION - Eye Exam Eye Exam: Normal appearance Pupil Exam: NORMAL ACCOMODATION - ENT Exam ENT Exam: Mucous Membranes Moist, Normal Exam - Neck Exam Neck Exam: Normal Inspection - Respiratory Exam Respiratory Exam: Clear to Ausculation Bilateral, NORMAL BREATHING PATTERN. absent: Rales, Rhonchi, Wheezes - Cardiovascular Exam Cardiovascular Exam: RRR, +S1, +S2. absent: Murmur - GI/Abdominal Exam GI & Abdominal Exam: Soft, Tenderness (epigastric tenderness ), Normal Bowel Sounds. absent: Distended - Extremities Exam Extremities Exam: Full ROM, Pedal Edema (1+ b/l; wearing pressure stocking) - Back Exam Back Exam: NORMAL INSPECTION. absent: tenderness - Neurological Exam Neurological Exam: Alert, Awake, Oriented x3 - Psychiatric Exam Psychiatric exam: Normal Affect - Skin Skin Exam: Warm Assessment and Plan - Assessment and Plan (Free Text) Assessment: 42yo AAF with a PMH of HTN, HLD, anemia w/ blood transfusions, s/p cholecystectomy who presents with atypical chest pain symptoms ongoing for 2 years worsened the last 2 days. Plan: 1. Atypical chest pain - patient admitted to telemetry unit for monitoring - CXR showed mild vascular congestion - CT chest done, f/u read - cont ASA - cont albuterol prn - Echo done, f/u read - EKG showed NSR @ 68bpm, with possible LAE - chest pain likely respiratory related, cleared for d/c 2. Hx HTN - cont HCTZ 3. PPx - PTX Patient was reviewed and discussed with Dr. Miranda
[2017-08-23] MEDS ORDERED: Enoxaparin 40 mg Syringe SC SCH (10:00)
--- NOTE | 2017-08-23 11:07 | CT ---
PROCEDURE: CT Chest with contrast (Pulmonary Angiogram) HISTORY: CHEST PAIN COMPARISON: Comparison made with prior chest radiograph dated 08/20/2017 TECHNIQUE: Axial computed tomography images were obtained of the chest in the pulmonary arterial phase of enhancement. Coronal and sagittal reformatted images were created and reviewed. Intravenous contrast dose: Radiation dose: Total exam DLP = mGy-cm. This CT exam was performed using one or more of the following dose reduction techniques: Automated exposure control, adjustment of the mA and/or kV according to patient size, and/or use of iterative reconstruction technique. FINDINGS: PULMONARY ARTERIES: The visualized pulmonary trunk, right and left main, lobar, segmental and subsegmental branches of the pulmonary arteries are well opacified with no definitive filling defects seen to suggest acute central pulmonary embolus. Pulmonary trunk measures approximately 2.47 cm. . AORTA: The ascending thoracic aorta measures approximately 3.1 cm. Descending thoracic aorta measures approximately 2.2 cm. No evidence of aortic dissection. LUNGS: No acute consolidation. There is a small approximately 4.7 mm nodule left lower lobe near the pleural surface on posterolateral convexity. . Small approximately 2.2 mm nodule superior cyst aspect right upper lobe also present. . Follow-up CT scan in 6 months recommended to assess stability. . Minor atelectasis/scarring changes seen both lung bases. There also appears to be some minimal linear scarring in the lingular and middle lobe regions. . PLEURAL SPACES: Unremarkable. No effusion or pneumothorax. . HEART: Heart size within range of normal. No significant pericardial effusion. LYMPH NODES: No significant mediastinal or hilar adenopathy. Central airways are midline and patent. No large central endoluminal lesions. There is a tiny hiatal hernia with minor wall thickening of the distal esophagus likely due to protrusion gastric mucosa. Possibility of esophagitis not excluded. BONES, CHEST WALL: No acute compression fractures. Minor endplate deformity anterior inferior T7 segment. There is minor multilevel degenerative spondylosis. OTHER FINDINGS: Unremarkable. IMPRESSION: No evidence of acute central pulmonary embolus. Small nodular densities left and right lower lobes as described. Follow-up CT scan 6 months recommended.
--- NOTE | 2017-08-23 12:27 | CARD ---
APPROVED REPORT EXAM: Two-dimensional and M-mode echocardiogram with Doppler and color Doppler. Other Information Quality : GoodRhythm : INDICATION Dyspnea Chest Pain RISK FACTORS Hypertension Hyperlipidemia 2D DIMENSIONS IVSd0.9 (0.7-1.1cm)LVDd4.7 (3.9-5.9cm) PWd1.0 (0.7-1.1cm)LVDs2.5 (2.5-4.0cm) FS (%) 46.0 %LVEF (%)77.4 (>50%) M-Mode DIMENSIONS RVDd1.63 (2.1-3.2cm)Left Atrium (MM)3.42 (2.5-4.0cm) IVSd1.40 (0.7-1.1cm)Aortic Root2.71 (2.2-3.7cm) LVDd4.98 (4.0-5.6cm)Aortic Cusp Exc.1.86 (1.5-2.0cm) PWd1.08 (0.7-1.1cm)FS (%) 47 % LVDs2.64 (2.0-3.8cm)LVEF (%)78 (>50%) Mitral Valve MV E Uqrpdfkc21.8cm/sMV A Prqjibzi51.7cm/sE/A ratio0.9 TDI E/Lateral E'0.0E/Medial E'0.0 Tricuspid Valve TR Peak [id number]/sTR Peak Gr.[id number] LEFT VENTRICLE The left ventricle is normal size. There is normal left ventricular wall thickness. The left ventricular function is normal. The left ventricular ejection fraction is within the normal range. No regional wall motion abnormalities noted. Transmitral Doppler flow pattern is Grade I-abnormal relaxation pattern. No left ventricle thrombus noted on this study. There is no ventricular septal defect visualized. There is no left ventricular aneurysm. There is no mass noted in the left ventricle. RIGHT VENTRICLE The right ventricle is normal size. There is normal right ventricular wall thickness. The right ventricular systolic function is normal. ATRIA The left atrium size is normal. The right atrium size is normal. The interatrial septum is intact with no evidence for an atrial septal defect. AORTIC VALVE The aortic valve is normal in structure and function. No aortic regurgitation is present. There is no aortic valvular stenosis. There is no aortic valvular vegetation. MITRAL VALVE The mitral valve is normal in structure and function. There is no evidence of mitral valve prolapse. There is no mitral valve stenosis. There is no mitral valve regurgitation noted. TRICUSPID VALVE The tricuspid valve is normal in structure and function. There is mild tricuspid regurgitation. Right ventricular systolic pressure is estimated at less than 30 mmHg. There is no tricuspid valve prolapse or vegetation. There is no tricuspid valve stenosis. PULMONIC VALVE The pulmonary valve is normal in structure and function. There is no pulmonic valvular regurgitation. There is no pulmonic valvular stenosis. GREAT VESSELS The aortic root is normal in size. The ascending aorta is normal in size. The pulmonary artery is normal. The IVC is normal in size and collapses >50% with inspiration. PERICARDIAL EFFUSION The pericardium appears normal. There is no pleural effusion. <Conclusion> The left ventricular function is normal. The left ventricular ejection fraction is within the normal range. No regional wall motion abnormalities noted.
--- NOTE | 2017-08-24 05:46 | PN ---
DATE: 08/22/2017 SUBJECTIVE: The patient was seen and examined at the bedside on 08/22/2017, looking comfortable. No fever, no chills. No nausea, vomiting or diarrhea. No hematuria or hematochezia. No headache, no dizziness. No chest pain, no palpitations. PHYSICAL EXAMINATION: VITAL SIGNS: Temperature 98.1, pulse 64, respiratory rate 20, blood pressure 123/81, pulse oxymetry 99. HEENT: Head is normocephalic and atraumatic. Eyes PERRLA. Extraocular muscles intact. Conjunctivae clear. Nose patent. NECK: Supple. No carotid bruits, JVD or thyromegaly. CHEST: Bilaterally symmetrical. HEART: S1, S2 positive. LUNGS: Clear to auscultation. ABDOMEN: Soft. Bowel sounds present. No organomegaly. EXTREMITIES: No edema. No cyanosis. NEUROLOGIC: The patient is awake and alert. Moving all 4 extremities. No focal deficits. MEDICATIONS: Ventolin, aspirin, Lovenox, hydrochlorothiazide, , Protonix, Miralax, Crestor. LABORATORY DATA: White blood cells 4.3, hemoglobin 12, hematocrit 36.2, platelets 176, sodium 142, potassium 4, BUN 11, creatinine 0.6, glucose 85. ASSESSMENT AND PLAN: Ms. Alia De La Paz is a 42 years old lady with leukopenia, came with chest pain, looks like atypical as per global consumer sector vice president, history of hypertension, hypercholesterolemia, anemia with blood transfusion, status post cholecystectomy came with atypical chest pain symptoms going for two years, worsened in last two days. According to global consumer sector vice president this is atypical chest pain, the patient admitted to telemetry for monitoring. Chest x-ray showed mild vascular congestion. CT chest done noted by me. Continue aspirin and albuterol as needed. Continue echocardiogram. Chest pain likely respiratory related. Cleared for DC by the global consumer sector vice president. Given prescription for hydrochlorothiazide (HCTZ). We will continue present treatment with GI, global consumer sector vice president, pulmonary is on the case. We will follow up. Sofya Caicedo MD [facility] # [id number]
== END 2017-08-23 13:00 | disposition home or self-care (01) | DRG 143 ==
LOC: C.ER 12:01 → C.9E 15:15 → C.5S 15:36 → OBSVTOIN 08-22 17:03
PROVIDERS: ADMIT Internal Medicine; ATTEND Internal Medicine
DX: R07.89 Other chest pain (principal); I10 Essential (primary) hypertension; E78.00 Pure hypercholesterolemia, unspecified; K21.9 Gastro-esophageal reflux disease without esophagitis; Z90.49 Acquired absence of other specified parts of digestive tract